=== PATIENT | male | born 1985 | race Caucasian/White ===

== ENCOUNTER 2018-11-07 09:01 | Emergency (ER) | payer OTHER, SELFPAY ==
[2018-11-07 09:06] VITALS: BP 142/88; PULSE 72; RESP 18; TEMP 36.8; O2SAT 100
--- NOTE | 2018-11-07 09:30 | ED.BACK ---
HPI - Back Pain/Injury General Chief Complaint: Back Pain/Injury Stated Complaint: sciatic pain Time Seen by Provider: 11/07/18 09:02 Source: patient Mode of arrival: ambulatory Limitations: no limitations History of Present Illness HPI Narrative: Patient is a 33-year-old male without a specific trauma here for evaluation of right-sided lower back pain radiating into his right leg. Patient states he has had these symptoms in the past and they have gone away on their own. He has been to physical therapy in the past. Is not currently on any medications. He states that a couple days ago he had a return of the symptoms. No urinary symptoms. No saddle anesthesia. No bowel changes. No fevers. No specific trauma. He has had an MRI for evaluation of this and also x-rays. He is scheduled for an orthopedic referral in approximately 2 weeks. Related Data Home Medications Medication Instructions Recorded Confirmed levothyroxine [Synthroid] 175 mcg PO DAILY 11/07/18 11/07/18 Previous Rx's Medication Instructions Recorded cyclobenzaprine 10 mg PO TID PRN #12 tab 11/07/18 ibuprofen 800 mg PO TID PRN #60 tab 11/07/18 prednisone 40 mg PO DAILY 5 Days #10 tab 11/07/18 tramadol [Ultram] 50 mg PO Q6H PRN #14 tab 11/07/18 Allergies Allergy/AdvReac Type Severity Reaction Status Date / Time No Known Drug Allergies Allergy Verified 11/07/18 09:10 Review of Systems Constitutional Denies fever(s) and Denies headache(s) ENT Ears, Nose, Mouth, and Throat: Denies vertigo, Denies dizziness and Denies headache(s) Cardiovascular Denies chest pain and Denies dyspnea Respiratory Denies dyspnea Gastrointestinal Gastrointestinal: Denies abdominal pain Genitourinary Denies dysuria, Denies testicular mass and Denies testicular pain Musculoskeletal Denies myalgias and Denies arthralgias Integumentary/Breasts Denies lesions and Denies rash Neurologic Denies behavioral changes, Denies burning sensations, Denies vertigo, Denies dizziness, Denies headache(s), Reports radicular pain (Right lower extremity) and Reports paresthesias (Right lower extremity) Psychiatric Denies behavioral changes Hematologic/Lymphatic Denies easy bleeding and Denies easy bruising [facility] Medical History Hypothyroid (Acute) Social History Smoking Status: Never smoker Social History Smoking Status: Never smoker Exam Initial Vital Signs Initial Vital Signs: Vital Signs Temperature 98.2 F 11/07/18 09:06 Pulse Rate 72 11/07/18 09:06 Respiratory Rate 18 11/07/18 09:06 Blood Pressure 142/88 H 11/07/18 09:06 Pulse Oximetry 100 11/07/18 09:06 Const General: cooperative, comfortable, well developed, well groomed and No acute distress Orientation: alert, awake and oriented x3 HENMT Head: normal to inspection and normocephalic Resp Effort & Inspection: normal respiratory effort Cardio Rate: regular rate Skin Lesions: no lesions Rashes: no rashes Neuro General: alert and awake Cognition: normal cognition Speech: speech normal Motor: muscle tone normal throughout Sensory Exam: no sensory deficits noted Other: 2+ patellar reflex bilateral, 2+ Achilles reflex bilateral Extrem General: normal to inspection and capillary refill normal Psych Appearance: grossly normal and well kempt Course Orders Ordered: Discontinued Medications Ketorolac Tromethamine (Toradol) 30 mg IM NOW ONE Stop: 11/07/18 09:31 Last Admin: 11/07/18 09:42 Dose: 30 mg Vital Signs - 8 hr 11/07/18 09:06 Temperature 98.2 F Pulse Rate 72 Respiratory Rate 18 Blood Pressure 142/88 H Pulse Oximetry 100 MDM - Back Pain/Injury MDM Narrative Medical decision making narrative: Patient without fever. No signs of cauda equina. No specific trauma. I was able to obtain the MRI result which shows multilevel degenerative disc disease without specific emergent surgical issues. Patient does currently have a referral to see orthopedics. Will hold on further workup for now. Will send home with symptom treatment. He was given return precautions and follow-up instructions. He expressed understanding and agreement with plan. Discharge Plan Departure Patient Disposition: Home Clinical Impression: Lumbar radiculopathy Instructions: Back Pain (Alternative Therapy), DI for Back Pain With Sciatica, Activity May Be Better then Rest for Low Back Pain Recovery Activity Restrictions/Additional Instructions: Keep all of your scheduled medical appointments. Take the medications as directed. Return to the emergency department for any new symptoms to include fevers, inability to control your bowel or bladder, or any other concerning symptoms. Prescriptions: New cyclobenzaprine 10 mg tablet 10 mg PO TID PRN (Reason: muscle spasm) Qty: 12 RF: 0 ibuprofen 800 mg tablet 800 mg PO TID PRN (Reason: pain) Qty: 60 RF: 0 prednisone 20 mg tablet 40 mg PO DAILY 5 Days Qty: 10 RF: 0 tramadol [Ultram] 50 mg tablet 50 mg PO Q6H PRN (Reason: pain) Qty: 14 RF: 0 No Action levothyroxine [Synthroid] 175 mcg Tablet 175 mcg PO DAILY RF: 0
[2018-11-07] MEDS: KETOROLAC 60 MG/2 ML VIAL 30 MG IM (09:42)
[2018-11-07 10:25] VITALS: BP 125/65; PULSE 61; RESP 12; O2SAT 97
[2018-11-07 10:31] VITALS: BP 118/71; PULSE 58; RESP 18; O2SAT 96
== END 2018-11-07 10:34 | disposition home or self-care (01) ==
PROVIDERS: Emergency Provider Emergency Medicine
DX: M54.16 Radiculopathy, lumbar region (principal)
CPT/HCPCS: 96372; 99282; J1885

== ENCOUNTER 2019-02-06 11:34 | Emergency (ER) | payer OTHER, SELFPAY ==
[2019-02-06 11:56] VITALS: BP 130/72; PULSE 82; RESP 18; TEMP 36.7; O2SAT 98
[2019-02-06] MEDS: CYCLOBENZAPRINE 10 MG TABLET PO (12:44)
[2019-02-06] MEDS: KETOROLAC 60 MG/2 ML VIAL IM (12:44)
--- NOTE | 2019-02-06 13:20 | ED_ITS ---
HPI - Back Pain/Injury <CARSON Hernandez - Last Filed: 02/06/19 15:56> General Chief Complaint: Back Pain/Injury Stated Complaint: siatica issues Time Seen by Provider: 02/06/19 12:08 Source: patient and family Mode of arrival: Wheelchair Limitations: no limitations History of Present Illness HPI Narrative: The patient is a 33-year-old male nonsmoker with history of sciatica and back pain who presents with his and child for a chief complaint of sciatica ongoing since Saturday. He states that he has a known slipped disc, has an appointment with Dr. brunner at [facility] for steroid injections. He states he does not know when he did on Saturday, vomits on his right side id sciatica got worse. He has been using leftover tramadol, used up his leftover Flexeril and ibuprofen 800. He took 800 mg of ibuprofen at 7:00 a.m.. He also started on gabapentin as per orthopedics. He denies any incontinence of bowel, incontinence of bladder, saddle anesthesia numbness in his groin. He denies any numbness or tingling. States that his pain is very isolated on his right lower back, radiates down when he sits up or bears weight. He states that he has been ?crawling around his house since Saturday. Related Data Home Medications Medication Instructions Recorded Confirmed levothyroxine [Synthroid] 175 mcg PO DAILY 11/07/18 11/07/18 Previous Rx's Medication Instructions Recorded cyclobenzaprine 10 mg PO TID PRN #12 tab 11/07/18 ibuprofen 800 mg PO TID PRN #60 tab 11/07/18 tramadol [Ultram] 50 mg PO Q6H PRN #14 tab 11/07/18 cyclobenzaprine 10 mg PO TID PRN #20 tab 02/06/19 hydrocodone-acetaminophen [[place]] 1 tab PO Q4-6H PRN #7 tab 02/06/19 ketorolac 10 mg PO TID PRN #15 tab 02/06/19 prednisone 50 mg PO DAILY #5 tab 02/06/19 Allergies Allergy/AdvReac Type Severity Reaction Status Date / Time No Known Drug Allergies Allergy Verified 11/07/18 09:10 Review of Systems <CARSON Hernandez - Last Filed: 02/06/19 15:56> Review of Systems Narrative: GENERAL: Denies chills, fatigue, malaise, fever, sweats. HEENT: Denies sinus pain, ear pain, sore throat, difficulty swallowing, dizzi ness. RESPIRATORY: Denies dyspnea, cough, wheezing, hemoptysis, sputum. CARDIOVASCULAR: Denies chest pain, palpitations, orthopnea, edema, GASTROINTESTINAL: Denies nausea, vomiting, abdominal pain, diarrhea, constipation, melena. : Denies dysuria, frequency, incontinence, hematuria, urinary retention. MUSCULOSKELETAL: See HPI SKIN: Denies rash, skin lesions, or other NEUROLOGIC: Denies weakness, headache, numbness, change in speech, confusion, seizures, incoordination. PSYCHIATRIC: No concerning psychosocial issues. 12 point review of systems is negative except for those stated above Patient History <NORBERT Hernandez - Last Filed: 02/06/19 15:56> Medical History Hypothyroid (Acute) Social History Smoking Status: Never smoker alcohol intake frequency: 0-2 drinks per day Substance Use Type: does not use Exam <NORBERT Hernandez - Last Filed: 02/06/19 15:56> Narrative Exam Narrative: GENERAL: This is a well-nourished, well-developed patient, appears uncomfortable HEAD: Atraumatic. Normocephalic. No temporal or scalp tenderness. EYES: Pupils equal round and reactive. Extraocular motions intact. No scleral icterus. No injection or drainage. ENT: Nose without bleeding, purulent drainage or septal hematoma. Throat without erythema, tonsillar hypertrophy or exudate. Uvula midline. Airway patent. NECK: Trachea midline. No JVD or lymphadenopathy. Supple, nontender, no meningeal signs. CARDIOVASCULAR: Regular rate and rhythm RESPIRATORY: Clear to auscultation. Breath sounds equal bilaterally. No wheezes, rales, or rhonchi. No cough. No increased respiratory effort. No accessory muscle use. EXTREMITIES: No clubbing, cyanosis, or edema. No joint tenderness, effusion, or edema noted. BACK: Nontender without deformity or crepitance. No flank tenderness. NEURO: AOx3. Strength is equal upper and lower extremities bilaterally. no gross cranial nerve deficit. SKIN: No rash or erythema. Initial Vital Signs Initial Vital Signs: Vital Signs Temperature 98.1 F 02/06/19 11:56 Pulse Rate 82 02/06/19 11:56 Respiratory Rate 18 02/06/19 11:56 Blood Pressure 130/72 02/06/19 11:56 Pulse Oximetry 98 02/06/19 11:56 <Billy Tobias DO - Last Filed: 02/07/19 09:21> Initial Vital Signs Initial Vital Signs: Vital Signs Temperature 98.1 F 02/06/19 11:56 Pulse Rate 82 02/06/19 11:56 Respiratory Rate 18 02/06/19 11:56 Blood Pressure 130/72 02/06/19 11:56 Pulse Oximetry 98 02/06/19 11:56 Course <NORBERT HernandezBC - Last Filed: 02/06/19 15:56> Orders Ordered: Discontinued Medications Hydrocodone Bitart/Acetaminophen ([place] 5/325) 2 tab PO NOW ONE Stop: 02/06/19 13:00 Last Admin: 02/06/19 13:27 Dose: 2 tab Documented by: NATHALY Cyclobenzaprine HCl (Flexeril) 10 mg PO NOW ONE Stop: 02/06/19 12:25 Last Admin: 02/06/19 12:44 Dose: 10 mg Documented by: NATHALY Ketorolac Tromethamine (Toradol) 60 mg IM NOW ONE Stop: 02/06/19 12:25 Last Admin: 02/06/19 12:44 Dose: 60 mg Documented by: NATHALY Prednisone (Deltasone) 60 mg PO NOW ONE Stop: 02/06/19 13:00 Last Admin: 02/06/19 13:26 Dose: 60 mg Documented by: NATHALY Vital Signs Vital signs: Vital Signs - 8 hr 02/06/19 11:56 02/06/19 14:23 Temperature 98.1 F Pulse Rate 82 62 Respiratory Rate 18 16 Blood Pressure 130/72 Blood Pressure [Right Arm] 121/69 Pulse Oximetry 98 96 <Billy Tobias DO - Last Filed: 02/07/19 09:21> Orders Ordered: Discontinued Medications Hydrocodone Bitart/Acetaminophen ([place] 5/325) 2 tab PO NOW ONE Stop: 02/06/19 13:00 Last Admin: 02/06/19 13:27 Dose: 2 tab Documented by: NATHALY Cyclobenzaprine HCl (Flexeril) 10 mg PO NOW ONE Stop: 02/06/19 12:25 Last Admin: 02/06/19 12:44 Dose: 10 mg Documented by: NATHALY Ketorolac Tromethamine (Toradol) 60 mg IM NOW ONE Stop: 02/06/19 12:25 Last Admin: 02/06/19 12:44 Dose: 60 mg Documented by: NATHALY Prednisone (Deltasone) 60 mg PO NOW ONE Stop: 02/06/19 13:00 Last Admin: 02/06/19 13:26 Dose: 60 mg Documented by: NATHALY Vital Signs Vital signs: Vital Signs - 8 hr 02/06/19 11:56 02/06/19 14:23 Temperature 98.1 F Pulse Rate 82 62 Respiratory Rate 18 16 Blood Pressure 130/72 Blood Pressure [Right Arm] 121/69 Pulse Oximetry 98 96 [facility] - Back Pain/Injury <RONALD Hernandez- - Last Filed: 02/06/19 15:56> MDM Narrative Medical decision making narrative: The patient is a 33-year-old male who presents with chief complaint of right-sided lower back pain, stating it is sciatica. He has no neurological deficit, no incontinence of bowel incontinence of bladder saddle anesthesia. He has no fever personal history of cancer. He states understanding of coming back to the emergency department if these are to occur. The patient feels much improved after Toradol, Flexeril, [place] and prednisone. He was able to ambulate after medication administration. I did give him prescriptions of these medications, discussed at length the importance of return precautions of incontinence of bowel incontinence of bladder saddle anesthesia, neurological deficits. 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 Discussed at length not taking any other NSAIDs along with the Toradol, that [place] can be constipating and sedating. Patient has no questions or concerns upon discharge and states understanding of return precautions as well as follow-up care. Discharge Plan Departure Patient Disposition: Home Clinical Impression: Lumbar back pain Sciatica Qualifiers: Laterality: right Qualified Code(s): M54.31 - Sciatica, right side Discharge Date/Time: 02/06/19 14:46 Instructions: DI for Back Pain With Sciatica, DI for Back Spasm, DI for Back Strain or Sprain Activity Restrictions/Additional Instructions: Please follow up with primary care provider in the next few days. I have given you several prescriptions to help with your back pain, including a steroid. I have also given you Toradol, anti-inflammatory, [place] which can be constipating and sedating as well as a muscle relaxer. The muscle relaxer can be sedating as well. Please come back to the emergency department for any acute concerns such as incontinence of bowel, incontinence of bladder numbness in your groin. I have given you a prescription of Toradol. This is an NSAID. Do not combine it with other NSAIDs such as Aleve or ibuprofen. I suggest taking it with some food, as it can irritate your stomach. Prescriptions: New cyclobenzaprine 10 mg tablet 10 mg PO TID PRN (Reason: muscle spasm) Qty: 20 RF: 0 ketorolac 10 mg tablet 10 mg PO TID PRN (Reason: pain) Qty: 15 RF: 0 hydrocodone-acetaminophen [[place]] 5-325 mg tablet 1 tab PO Q4-6H PRN (Reason: pain) Qty: 7 RF: 0 prednisone 50 mg tablet 50 mg PO DAILY Qty: 5 RF: 0 No Action levothyroxine [Synthroid] 175 mcg Tablet 175 mcg PO DAILY RF: 0 cyclobenzaprine 10 mg tablet 10 mg PO TID PRN (Reason: muscle spasm) Qty: 12 RF: 0 ibuprofen 800 mg tablet 800 mg PO TID PRN (Reason: pain) Qty: 60 RF: 0 tramadol [Ultram] 50 mg tablet 50 mg PO Q6H PRN (Reason: pain) Qty: 14 RF: 0 Referrals: [facility] [Provider Group] Stand Alone Forms: Work Release Note
[2019-02-06] MEDS: predniSONE 20 MG TABLET 60 MG PO (13:26)
[2019-02-06] MEDS: HYDROCODONE/ACET 5/325 TABLET 2 TAB PO (13:27)
--- NOTE | 2019-02-06 13:57 | PC.NURSE ---
1357 pt ambulated independently approx 20 ft able to rise from bed without assist reports improved discomfort
[2019-02-06 14:23] VITALS: BP 121/69; PULSE 62; RESP 16; O2SAT 96
== END 2019-02-06 14:46 | disposition home or self-care (01) ==
PROVIDERS: Emergency Provider Nurse Practitioner Family
DX: M54.41 Lumbago with sciatica, right side (principal)
CPT/HCPCS: 96372; 99282; 99283; J1885

== ENCOUNTER → 2023-05-02 09:15 | Outpatient (CLI) | payer OTHER, SELFPAY ==
[2023-05-02 09:55] LABS: Semen Sperm Prescence Post-Vas Absent (ABSENT)
== END ==
PROVIDERS: PCP General Practice; Referring Provider Specialist; Visit Provider Specialist
DX: Z98.52 Vasectomy status (principal)
CPT/HCPCS: 89321